=== PATIENT | female | born 1965 | race Caucasian/White ===

== ENCOUNTER 2017-12-01 06:09 | Day surgery (SDC) | END 2017-12-01 10:45 | disposition home or self-care (01) ==

== ENCOUNTER 2018-04-21 05:11 | Inpatient (IN) | payer OTHER ==
[2018-04-20 08:26] VITALS: BMI 34.4
[2018-04-21] VITALS (29 sets, daily range): BP systolic 111–149; BP diastolic 58–80; PULSE 60–99; RESP 10–22; Ht 149.9 cm; Wt 76.0 kg
[~2018-04-21] VITALS: Ht 149.9 cm; Wt 76.0 kg
[~2018-04-21 05:11] MED LIST: ASPI81TA52 PO
[2018-04-21] MEDS ORDERED: EPHEDrine SULFATE 50 MG/5 ML SYG ONE (07:00)
[2018-04-21] MEDS ORDERED: SEVOFLURANE 15 MIN ONE (07:00)
--- NOTE | 2018-04-21 07:05 | PREOPHP ---
DATE OF ADMISSION: 04/21/2018 HISTORY OF PRESENT ILLNESS: This is a 52-year-old lady, 2, para 2. Her last normal menstrua l period was at the age of 48. She was admitted for exploratory laparotomy, supracervical hysterecto my and bilateral salpingo-oophorectomy and vaginal vault suspension. The patient complains of chroni c pelvic pain for the last few years and getting worse up to the time of admission, the patient is kn own to have fibroid uterus, and she wanted her uterus to be taken out. She never had any abnormal Pa p smears before, so she wanted her cervix to be left behind. So she is for exploratory laparotomy, s upracervical hysterectomy, bilateral salpingo-oophorectomy, and vaginal vault suspension. She is kno wn to have a first-degree cystocele and first degree rectocele. The procedures were explained to the patient and she understood everything totally. The risks, benefits, and alternatives were discussed with her as well. PAST PERSONAL HISTORY: No history of TB, asthma. PAST SURGICAL HISTORY: The patient has had a cholecystectomy in 2018. ALLERGIES: NO ALLERGIES. SOCIAL HISTORY: Patient does not smoke. She does not drink. She does not take any drugs. GYNECOLOGIC HISTORY: She had menarche at the age of 16, every 28 days interval, 3 to 4 days duration , and moderate in amount. FAMILY HISTORY: Mother has high blood pressure, mother and sister have cancer. She is 3, pa ra 2, and with 1 . She had 2 normal deliveries. REVIEW OF SYSTEMS: CARDIOVASCULAR: No chest pains. RESPIRATORY: No cough. GASTROINTESTINAL: No diarrhea, no vomiting. GENITOURINARY: No dysuria. PHYSICAL EXAMINATION: GENERAL: Reveals a conscious, coherent lady and in no acute distress. VITAL SIGNS: Her blood pressure 130/80, pulse rate 80 per minute, respirations 16 per minute. BREASTS, HEART AND LUNGS: Within normal limits. ABDOMEN: Soft and obese. PELVIC: Revealed the cervix to be firm, uterus about 12 week size, and adnexa were negative for mass es. First degree cystocele and first degree rectocele was noted. EXTREMITIES: No pedal edema. ADMITTING DIAGNOSIS: 1. Symptomatic fibroid uterus. 2. Pelvic pain. 3. Obesity. 4. First degree cystocele, first degree rectocele. PLAN: The patient was planned to have the above procedure. The patient knows that she needs to have Pap smear as needed since she is going to have her cervix left behind and patient is aware of that. Dictated By: HARESH KELLER MD NS/NTS Conf#: [id number] DID#: [id number] CC: HARESH KELLER MD;*EndCC*
--- NOTE | 2018-04-21 07:18 | PREAC ---
Date/Time of Note Date/Time of Note DATE: 04/21/18 TIME: 07:16 Anesthesia Eval and Record Evaluation Time Pre-Procedure Interview DATE: 04/21/18 TIME: 07:16 Age 52 Sex female NPO: 8 hrs Preoperative diagnosis fibroid uterus, cystocele, rectocele Planned procedure exploratory laparotomy, supracervical hysterectomy, bilateral salpino- oophorectomy, vaginal vault suspension Past Medical History Past Medical History: Includes Cardio: Dyslipidemia GI: Obesity Surgery & Anesthesia Issues No known issue Meds Anticoagulation: No Beta Ntaalie within 24 hr: No Reason Beta Natalie not given: Pt. not on B-Natalie Discontinued Reported Medications Aspirin (Low Dose Aspirin) 81 Mg Tablet.dr, 81 MG PO DAILY, #30 TAB 12/01/17 Meds reviewed: Yes Allergies Coded Allergies: No Known Allergy (Unverified , 04/21/18) Allergies Reviewed: Yes Labs/Studies Labs Reviewed: Reviewed by anesthesiologist Blood Bank Test 04/20/18 08:16 Antibody Screen NEGATIVE Blood Type O POSITIVE test: Negative Pre-procedure Exam Airway: Adequate mouth opening, Adequate thyromental dist Mallampati: Mallampati II Teeth: Normal Lung: Normal Heart: Normal ASA Physical Status ASA physical status: 2 Emergency: None Planned Anesthetic General/MAC: ETT Nerve block: TAP (bilateral) Planned Pain Management Single shot nerve block, Parenteral pain med Pre-operative Attestations Prior to commencing anesthesia and surgery, the patient was re-evaluated, there was verification of: *The patient's identity *The results of appropriate recent lab work and preoperative vital signs *The above evaluation not changing prior to induction *Anesthetic plan, risk benefits, alternative and complications discussed with patient/family; questions answered; patient/family understands, accepts and wishes to proceed. Junior Estimator used BERNA ESPINAL MD Apr 21, 2018 07:18
[2018-04-21] MEDS ORDERED: LIDOCAINE 2% (SDV) 5 ML INJ ONE (07:25)
[2018-04-21] MEDS ORDERED: ROCURONIUM 50 MG INJ ONE (07:25)
[2018-04-21] MEDS ORDERED: PROPOFOL 20 ML ONE (07:25)
[2018-04-21] MEDS ORDERED: SUCCINYLCHOLINE CHLORIDE 100 MG/5 ML SYG IV ONE (07:25)
[2018-04-21] MEDS ORDERED: MIDAZOLAM 1 MG/ML 2 ML INJ ONE (07:26)
[2018-04-21] MEDS ORDERED: FENTAnyl 50 MCG/ML VIAL ONE (07:26)
[2018-04-21] MEDS ORDERED: DEXAMETHASONE 4 MG/ML 5 ML INJ ONE (07:38)
[2018-04-21] MEDS ORDERED: CEFAZOLIN 1 GM INJ ONE (07:38)
[2018-04-21] MEDS ORDERED: FAMOTIDINE 20 MG INJ ONE (07:38)
[2018-04-21] MEDS ORDERED: ONDANSETRON 4 MG INJ ONE (07:38)
[2018-04-21] MEDS ORDERED: FENTAnyl 50 MCG/ML VIAL IV PRN ×3 (08:00)
[2018-04-21] MEDS ORDERED: HYDROmorphONE 0.2 MG/ML PCA IV SCH (08:00)
[2018-04-21] MEDS ORDERED: HYDROmorphONE 1 MG/5 ML IV SYRINGE IV PRN ×3 (08:00)
[2018-04-21] MEDS ORDERED: PROCHLORPERAZINE 10 MG INJ IV PRN (08:00)
[2018-04-21] MEDS ORDERED: DIPHENHYDRAMINE 50 MG INJ IV PRN ×2 (08:00)
[2018-04-21] MEDS ORDERED: MEPERIDINE 25 MG INJ IV PRN (08:00)
[2018-04-21] MEDS ORDERED: HYDROmorphONE 0.5 MG/0.5 ML SYG IV PRN ×2 (08:00)
[2018-04-21] MEDS ORDERED: ONDANSETRON 4 MG INJ IV PRN ×3 (08:00→10:00)
[2018-04-21] MEDS ORDERED: NALOXONE (0.4 MG/ML) INJ IV PRN (08:00)
[2018-04-21] MEDS ORDERED: HYDROmorphONE 2 MG/ML SYG ONE (08:12)
[2018-04-21] MEDS ORDERED: GLYCOPYRROLATE 0.4 MG INJ ONE ×3 (09:11→09:30)
[2018-04-21] MEDS ORDERED: NEOSTIGMINE 3 MG/3 ML SYRINGE ONE ×2 (09:11→09:30)
[2018-04-21] MEDS ORDERED: ROPIVACAINE 0.5 % 30 ML VIAL ONE (09:13)
[2018-04-21] MEDS ORDERED: KETOROLAC 30 MG INJ ONE (09:22)
--- NOTE | 2018-04-21 09:46 | SIPON ---
Date/Time of Note Date/Time of Note DATE: 04/21/18 TIME: 09:42 Operative Report Preoperative Diagnosis FIBROID CHRONIC PELVIC PAIN CYSTOCELE 1ST DEGREE RECTOCELE 1ST DEGREE Postoperative Diagnosis FIBROID CHRONIC PELVIC PAIN CYSTOCELE 1ST DEGREE RECTOCELE 1ST DEGREE SEVERE PELVIC ADHESION RIGHT BROAD LIGAMENT FIBROID Operation/Procedure Performed EXPLORATORY LAPAROTOMY SUPRACERVICAL HYSTERECTOMY BILATERAL SALPHINGO OOPHORECTOMY VAGINAL VAULT SUSPENSION LYSIS OF ADHESION Surgeon see signature line early childhood teacher assistant DR GODINEZ Anesthesia: general Estimated blood loss: 150 - 200 ml's Transfusion Required none Specimen PARTS OF CERVIX BODY OF UTERUS RIGHT BROAD LIGAMENT FIBROID OMENTAL ADHESION Grafts/Implants none Complications none HARESH KELLER MD Apr 21, 2018 09:46
--- NOTE | 2018-04-21 09:52 | PAC ---
Date/Time of Note Date/Time of Note DATE: 04/21/18 TIME: 09:52 Post-Anesthesia Notes Post-Anesthesia Note Activity: WNL Respiratory function: WNL Cardiovascular function: WNL Mental status: Baseline Pain reasonably controlled: Yes Hydration appropriate: Yes Nausea/Vomiting absent: Yes Comments BP: 125/74 HR: 96 RR: 15 T: 98 SaO2: 99% BERNA ESPINAL MD Apr 21, 2018 09:52
[2018-04-21] MEDS: KETOROLAC 30 MG INJ IV SCH ×2 (16:29→22:04)
[2018-04-21] MEDS: LACTATED RINGER'S 1,000 ML IV SCH (18:52)
[2018-04-21] MEDS ORDERED: ZOLPIDEM 5 MG TAB PO PRN (21:00)
[2018-04-22] MEDS: LACTATED RINGER'S 1,000 ML IV SCH ×3 (01:00→18:39)
[2018-04-22 02:02] VITALS: BP 125/75; PULSE 91; RESP 18
[2018-04-22] MEDS: KETOROLAC 30 MG INJ IV SCH ×2 (04:21→10:14)
[2018-04-22 05:08] VITALS: BP 130/66; PULSE 67; RESP 18
[2018-04-22] MEDS ORDERED: MAGNESIUM HYDROXIDE 30ML CUP PO ONE ×3 (06:00→17:00)
[2018-04-22] MEDS ORDERED: BISACODYL 10 MG SUPP PR ONE ×3 (06:00→17:00)
[2018-04-22 07:35] VITALS: BP 119/71; PULSE 64; RESP 18
[2018-04-22] MEDS ORDERED: HYDROCODONE/APAP (5/325) TAB PO PRN ×2 (10:00)
[2018-04-22 14:46] VITALS: BP 114/57; PULSE 69; RESP 18
--- NOTE | 2018-04-22 15:03 | OPR ---
DATE OF OPERATION: 04/21/2018 PREOPERATIVE DIAGNOSES: 1. Fibroid uterus. 2. First degree cystocele. 3. First degree rectocele. 4. Chronic pelvic pain. POSTOPERATIVE DIAGNOSES: 1. Fibroid uterus. 2. First degree cystocele. 3. First degree rectocele. 4. Chronic pelvic pain. 5. Severe pelvic and abdominal adhesions. 6. Perineal relaxation. SURGEON: Haresh Keller MD VICE PRESIDENT OF CONTRACTS: Richard Garcia MD ANESTHESIA: General. OPERATION PERFORMED: Exploratory laparotomy, supracervical hysterectomy, bilateral salpingo-oophorec stevie, vaginal vault suspension, lysis of severe pelvic and abdominal adhesions and omental biopsy. OPERATIVE TECHNIQUE: Under general anesthesia, the patient was prepped and draped in the usual fashi on for abdominal surgery. After checking for the effect of the anesthesia, a Pfannenstiel incision, 14 cm skin incision, was performed. The incision was carried from the skin up to the fascia. Upon o pening the skin up to the fascia, small blood vessels were noted to be oozing and these were all caut erized. Fascia was opened transversely followed by splitting the muscles and the peritoneum vertical ly. Upon opening the abdominal cavity, the upper abdominal organs were palpated. They were within n ormal limits. The uterus was noted to be of normal size, but there is a 10 x 10 cm mass on the right broad ligament. The self-retaining retractor was put in place and the bladder blade was put in plac e. The bowels were packed away from the operative field with the aid of 6 wet lap sponges and the up per blade was put in place. There were adhesions noted on the right broad ligament to the omentum. All these adhesions were lysed by sharp and blunt dissection. Then the uterus was pulled out from th e pelvic cavity with the aid of a tenaculum. Then, the two 8-inch Kochers were placed on the left ro und ligament and cut. A stick tie with 0 Vicryl was used and tagged. Then, the same thing was done on the right side. The right round ligament was grasped with 2 Kochers and cut. A stick tie with 0 Vicryl was used and tagged. Then, the broad ligament on the left side was skeletonized for the devel opment of the bladder flap. The broad ligament was skeletonized for the development of the bladder f lap. Infundibulopelvic ligament was grasped with 2 Eldon clamps and pulled back with a straight Koc her and cut. At first, a free tie with 0 Vicryl was used followed by Eldon suture. Bleeders were c hecked and there was no bleeding noted. Same thing was done on the right side. The right round liga ment was grasped with 2 Kochers and cut. Stick tie with 0 Vicryl was used and tagged. The right bro ad ligament was skeletonized for the development of the bladder flap. Then the left utero-ovarian an d left uterotubal ligament was grasped with 2 Eldon clamps and pulled back with a straight Nora an d cut. At first, a free tie with 0 Vicryl was used followed by Eldon suture. Bleeders were checked and there was no bleeding noted. Once again, the bladder was from the cervix by sharp and blunt dissection, then about 2 Kochers were placed at utero-ovarian and uterotubal ligament for trac tion then the left uterine vessels were grasped with 2 Eldon clamps and pulled back with a straight Nora and cut. A stick tie with 0 Vicryl was used on each clamp. Same thing was done on the right side. The cervix was from the bladder by sharp and blunt dissection. Two more Eldon clam ps were placed at the left side of the cervix as well as on the right side 2 more Eldon clamps and t hen on each clamp, the tissue was cut and a stick tie with 0 Vicryl was used. The left broad ligamen t was skeletonized for the development of the bladder flap. Once again the cervix was from the paracervical tissue by sharp and blunt dissection and the bladder was from the cervix by sharp and blunt dissection, then about 3 more Kochers were placed at this paracervical tissue on t he left and right side and on each Nora, the tissue was cut and a stick tie with 0 Vicryl was used. The body of the uterus was excised. Once again, tenaculum was put in the vaginal mucosa. Once aga in, the bladder was from the cervix by sharp and blunt dissection with the aid of the caute ry. Then, a piece of cervix was excised and the remaining cervix was grasped with tenaculum. Once a gain, the bladder was from the cervix by sharp and blunt dissection. About 3 more Kochers were placed at its paracervical tissue on each side and on each Nora, the tissue was cut and a stic k tie with 0 Vicryl was used. Another piece of cervix was excised. A 1/3 of the cervix was left beh ind. The remaining cervical mucosa was cauterized. Then, the remaining cervix was grasped with a si ngle tooth tenaculum and closed in 3 layers using 0 Vicryl. Continuous suture was used. Then, the r ight broad ligament fibroid was enucleated by making an opening on the broad ligament. Then, the fib roid was enucleated from the right broad ligament by sharp and blunt dissection and is about 8 x 8 cm . The uterus when it was removed was sent to pathology for frozen section. It was benign. This fib roid from the right broad ligament was also sent to pathology for frozen section and the frozen secti on came benign. There were adhesions noted of this fibroid to the right pelvic wall. All these adhe sions were lysed by sharp and blunt dissection. Then, the bleeders were checked on the right pelvic area and there was no bleeding noted. Then, the right broad ligament was sutured with continuous sut ure with 0 Vicryl. Bleeders were checked and there was no bleeding noted. Then, the right angle of the cervix was sutured with the right paracervical tissue and in turn after checking for any bleeders in which there were none, tied with the right round ligament for vaginal vault suspension. Same thi ng was done on the left side. Then, the left angle of the cervix was sutured with the left paracervi toña tissue and tied with the left round ligament for vaginal vault suspension. Bleeders were checked and there was no bleeding noted. Irrigation was done to check for any bleeders and there was no ble eding noted. Prior to that, there was omental tissue that was excised and sent to pathology. Then a fter checking for the bleeders in which there were none, after correct sponge count, needle count and instrument count as confirmed by the production maintenance technician and cement car dumper, the abdomen was closed in the usual fashion using 0 Vicryl for the peritoneum, 0 Vicryl for the muscles, for the fascia 0 Vicryl continuo us stitch was used followed by few [id number] suture for the subcutaneous tissue, it was closed with 3-0 Vicryl and the skin was closed with 3-0 Vicryl, subcuticular suture was used. The patient t olerated the procedure well. Estimated blood loss was about 300 mL. Vital signs were stable during and after the procedure. As mentioned, the right broad ligament fibroids were deeply attached to the right pelvic wall as well. Dictated By: HARESH ALARCON/BRAYDEN Conf#: [id number] DID#: [id number]
[2018-04-22] MEDS ORDERED: IBUPROFEN 800 MG TAB PO PRN (16:00)
[2018-04-22 19:30] VITALS: BP 122/59; PULSE 72; RESP 18
[2018-04-23] MEDS: LACTATED RINGER'S 1,000 ML IV SCH ×2 (01:00→01:40)
[2018-04-23 02:51] VITALS: BP 134/65; PULSE 77; RESP 18
--- NOTE | 2018-04-23 05:09 | PN ---
DATE: 04/22/2018 TIME SEEN: 3:00 p.m. SUBJECTIVE: The patient feels good. Passing gas per rectum, had good bowel movements, complaining o f incisional pain. OBJECTIVE VITAL SIGNS: She is afebrile. Vital signs stable. LUNGS: Clear. HEART: Normal sinus rhythm. ABDOMEN: Soft. Wound dry. Bowel sounds good. No vaginal bleeding. EXTREMITIES: No calf tenderness. ASSESSMENT: Postop day #1. PLAN: Advance diet as tolerated. Discontinue IV tomorrow morning. Repeat CBC tomorrow morning; pos sible home tomorrow. Plans were explained to the patient and she understood everything totally. Dictated By: HARESH KELLER MD NS/NTS Conf#: [id number] DID#: [id number] CC: HARESH KELLER MD;*EndCC*
[2018-04-23 07:37] VITALS: BP 108/62; PULSE 79; RESP 18
[2018-04-23 14:19] VITALS: BP 137/70; PULSE 82; RESP 18
--- NOTE | 2018-04-24 04:26 | PN ---
DATE: 04/23/2018 SUBJECTIVE: The patient feels good. Good bowel movement. Less incisional pain. Discharged to go [facility] soon. OBJECTIVE: VITAL SIGNS: She is afebrile. Vital signs stable. ABDOMEN: Soft. Wound dry. Bowel sounds good. No vaginal bleeding. EXTREMITIES: No calf tenderness. ASSESSMENT: Postop day #2. PLAN: Home today to clinic in 2 weeks. Prescription was given for pain. She was counseled. She wa s instructed. She was discharged home in good and stable condition. Dictated By: HARESH ALARCON/BRAYDEN Conf#: [id number] DID#: [id number]
--- NOTE | 2018-04-26 15:12 | DS ---
DATE OF ADMISSION: 04/21/2018 DATE OF DISCHARGE: 04/23/2018 HOSPITAL COURSE: This is a 52-year-old lady, 2, para 2. She was admitted for exploratory la parotomy, supracervical hysterectomy, bilateral salpingo-oophorectomy and vaginal vault suspension. HISTORY OF PRESENT ILLNESS: See dictated history and physical. PHYSICAL EXAMINATION: See dictated history and physical. ADMITTING DIAGNOSES: 1. Symptomatic fibroid uterus. 2. Pelvic pain. 3. Obesity. PROCEDURES: The patient underwent an exploratory laparotomy, supracervical hysterectomy, bilateral s alpingo-oophorectomy, vaginal vault suspension, lysis of severe pelvic and abdominal adhesions and om ental biopsy. POSTOPERATIVE DIAGNOSES: 1. Fibroid uterus. 2. First degree cystocele, first degree rectocele. 3. Chronic pelvic pain. 4. Severe pelvic and abdominal adhesions. 5. Perineal relaxation. She tolerated the procedure well. She did have good postoperative course. The diet was advanced fro m liquid to general diet. She has good bowel movement. Postoperatively, she has less pain on the se cond postoperative day. She was discharged home on the second postoperative day on general diet and activity was restricted. She was counseled. She was instructed. She was given prescription for mary n. She was told to come back to the clinic in 2 weeks. The pathology report shows grossly small end ometrial polyp, suspicion for cancer and fibroid uterus, perineal relaxation, cystocele and rectocele first degree, pelvic and abdominal adhesions, chronic pelvic pain and obesity. The hematocrit on [facility] was 34 and then hemoglobin was 11.2. Dictated By: HARESH ALARCON/BRAYDEN Conf#: [id number] DID#: [id number]
== END 2018-04-23 16:37 | disposition home or self-care (01) | DRG 743 ==
LOC: REC 05:11 → EDSTATUS 07:30 → MS1 11:21
PROVIDERS: ADMIT Obstetrics & Gynecology; ATTEND Obstetrics & Gynecology
PROC: 0UT70ZZ Resection of Bilateral Fallopian Tubes, Open Approach (ICD-10-PCS; 2018-04-21)
PROC: 0UT20ZZ Resection of Bilateral Ovaries, Open Approach (ICD-10-PCS; 2018-04-21)
PROC: 0UB40ZX Excision of Uterine Supporting Structure, Open Approach, Diagnostic (ICD-10-PCS; 2018-04-21)
PROC: 0USG0ZZ Reposition Vagina, Open Approach (ICD-10-PCS; 2018-04-21)
PROC: 0UT90ZL Resection of Uterus, Supracervical, Open Approach (ICD-10-PCS; principal; 2018-04-21 07:30)
DX: D25.1 Intramural leiomyoma of uterus (principal); R10.2 Pelvic and perineal pain; E66.9 Obesity, unspecified; Z68.33 Body mass index [BMI] 33.0-33.9, adult; N81.10 Cystocele, unspecified; N81.6 Rectocele; D28.2 Benign neoplasm of uterine tubes and ligaments; N81.89 Other female genital prolapse
CPT/HCPCS: 80053; 84702; 84703; 85025; 86850; 86900; 86901; 88305; J0690; J1100; J1170; J1885; J2250; J2405; J2710; J2795; J3010; J7120